=== PATIENT | female | born 1990 | race Caucasian/White ===

== ENCOUNTER 2017-05-29 02:45 | Inpatient (IN) | payer BC, OTHER ==
[~2017-05-29] VITALS: Ht 167.6 cm; Wt 77.0 kg
[~2017-05-29 02:45] MED LIST: METHYLPREDNISOLO4 M1 PO; NORCO 5-325 TA1 EACH PO; VENTOLIN HFA18 GM INH; VIRTUSSIN AC L473 ML PO
[2017-05-29] MEDS ORDERED: FIBER500 MG PO (04:13)
[2017-05-29] MEDS ORDERED: PRENATAL COMPL1 EACH PO (04:14)
[2017-05-29] MEDS ORDERED: PROBIOTIC1 EAC1 PO (04:15)
--- NOTE | 2017-05-30 10:38 | PR ---
[facility] [address] [place] [address] Signed PP Progress Notes Datetime Report Generated by CPN: 05/30/2017 10:38 SUBJECTIVE: [id number] Pain: Within normal limits Pain Comments: Baby doing a little better with breast feeding. Vital Signs: [id number] Vital Signs: Reviewed; Within Normal Limits EXAM: [id number] Cardiovascular: Not Done Respiratory: Not Done Abdomen/Uterus: Abnormal Lochia: Normal Vulva/Perineum: Not Done Breasts: Not Done CVA Tenderness: Not Done Extremities: Normal Incision: Not Applicable Progress: Abnormal Exam Comments: Fundus firm, NT @ U-1. H/H 10.8/30.8, WBC 15.4, plat 206k IMPRESSION/PLAN/PROCEDURES: [id number] Impression: Normal progression Plan: Continue present management; consult Procedures: None Progress Notes: Doing well. Will work on breast feeding and have probable D/C tomorrow. Signing Physician: Maren Durand MD CC: *Electronically Signed* 05/30/17 MAREN NEWTON MD PATIENT NAME: LV INTERIANO PROGRESS NOTE DATE OF : 86 PHYSICIAN: MAREN DURAND MD RPT #: [id number] REPORT IS CONFIDENTIAL AND NOT TO BE RELEASED WITHOUT AUTHORIZATION
--- NOTE | 2017-05-31 07:56 | PR ---
[facility] [address] [facility] [place], [place] [address] Signed PP Progress Notes Datetime Report Generated by [email or web address]: 05/31/2017 07:56 SUBJECTIVE: [id number] Pain: Within normal limits Pain Comments: Baby doing a little better with breast feeding. Vital Signs: [id number] Vital Signs: Reviewed; Within Normal Limits EXAM: [id number] Cardiovascular: Not Done Respiratory: Not Done Abdomen/Uterus: Abnormal Lochia: Normal Vulva/Perineum: Not Done Breasts: Not Done CVA Tenderness: Not Done Extremities: Normal Incision: Not Applicable Progress: Normal Exam Comments: Fundus firm, NT @ U-1. IMPRESSION/PLAN/PROCEDURES: [id number] Impression: Normal progression Plan: Discharge Procedures: None Progress Notes: Breast feeding much improved. She is ready for D/C. Signing Physician: Maren Durand MD CC: *Electronically Signed* 05/31/17 0756 MAREN DURAND MD PATIENT NAME: LV INTERIANO PROGRESS NOTE DATE OF : 88 PHYSICIAN: MAREN DURAND MD RPT #: [id number] REPORT IS CONFIDENTIAL AND NOT TO BE RELEASED WITHOUT AUTHORIZATION
== END 2017-05-31 10:20 | disposition home or self-care (01) | DRG 775 ==
LOC: FBC 02:45
PROVIDERS: ADMIT Obstetrics & Gynecology
PROC: 10E0XZZ Delivery of Products of Conception, External Approach (ICD-10-PCS; principal; 2017-05-29)
PROC: 0DQR0ZZ Repair Anal Sphincter, Open Approach (ICD-10-PCS; 2017-05-29)
PROC: 10907ZC Drainage of Amniotic Fluid, Therapeutic from Products of Conception, Via Natural or Artificial Opening (ICD-10-PCS; 2017-05-29)
PROC: 00HU33Z Insertion of Infusion Device into Spinal Canal, Percutaneous Approach (ICD-10-PCS; 2017-05-29)
PROC: 3E0R3CZ (ICD-10-PCS; 2017-05-29)
DX: O70.20 Third degree perineal laceration during delivery, unspecified (principal); Z3A.40 40 weeks gestation of pregnancy; Z37.0 Single live birth
CPT/HCPCS: 01960; 36415; 85027; J2405; J2590; J7120